=== PATIENT | male | born 1955 | race Caucasian/White ===

== ENCOUNTER 2023-10-16 09:01 | Observation (INO) ==
--- NOTE | 2023-09-21 10:52 | PAT Medication Instructions ---
Medication Instructions Date of Service September 21, 2023 Home Medications amlodipine 5 mg tablet 5 mg PO PM carvedilol 12.5 mg tablet 12.5 mg PO BID losartan 50 mg tablet 50 mg PO QAM simvastatin 20 mg tablet 20 mg PO PM cholecalciferol (vitamin D3) 50 mcg (2,000 unit) tablet (Vitamin D3) 50 mcg PO DAILY cyanocobalamin (vitamin B-12) 1,000 mcg tablet 1,000 mcg PO 3XWK naproxen sodium 220 mg tablet (Aleve) 220 mg PO BID PRN Pain sour hauser extract 1,000 mg capsule (Tart Hauser Extract) 3,000 mg PO DAILY MEDICATION INSTRUCTIONS: ASK your surgeon for instructions naproxen sodium 220 mg tablet (Aleve) 220 mg PO BID PRN Pain STOP taking 2 weeks before surgery sour hauser extract 1,000 mg capsule (Tart Hauser Extract) 3,000 mg PO DAILY DO NOT take the morning of surgery losartan 50 mg tablet 50 mg PO QAM cholecalciferol (vitamin D3) 50 mcg (2,000 unit) tablet (Vitamin D3) 50 mcg PO DAILY cyanocobalamin (vitamin B-12) 1,000 mcg tablet 1,000 mcg PO 3XWK Take morning of surgery With a small sip of water, OTHERWISE NOTHING TO EAT OR DRINK AFTER MIDNIGHT: carvedilol 12.5 mg tablet 12.5 mg PO BID Take evening before surgery simvastatin 20 mg tablet 20 mg PO PM amlodipine 5 mg tablet 5 mg PO PM carvedilol 12.5 mg tablet 12.5 mg PO BID Other Notes If you have any questions please call us at [phone] or [phone] or [phone] or [phone]
--- NOTE | 2023-09-25 11:39 | Anesthesiology Consultation ---
Date of Service September 25, 2023 Assessment & Plan (1) Encounter for pre-operative examination: - Outpatient joint assessment: Patient is currently scheduled for inpatient pathway. If re-evaluated and patient/surgeon requests outpatient pathway, patient is acceptable candidate for outpatient joint program from anesthesia standpoint pending surgeon's office assessment of pt motivation/support/completion of same day joint program preop requirements. Chart Review Chart Review: Acceptable Risk for Surgery and Patient seen in Pre Admission Testing Teaching & Discussion Pre-Anesthesia Teaching/Discussion Notes: Instructed NPO after midnight before surgery, except medications with 15 cc of water. Medication instructions provided according to the PAT guidelines. History Surgery Operation Date: 10/16/23 10:00 Proposed Procedures p Right Total Knee Arthroplasty - John Light MD Height/Weight Height: 5 ft 9 in Weight: 113.8 kg Allergies Allergy/AdvReac Type Severity Reaction Status Date / Time No Known Allergies Allergy Verified 09/17/23 14:48 Medications Home Medications Medication Instructions Recorded Confirmed Last Taken CPAP Machine 02/12/23 02/12/23 Unknown amlodipine 5 mg tablet 5 mg PO PM 02/12/23 09/17/23 Unknown carvedilol 12.5 mg tablet 12.5 mg PO BID 02/12/23 09/17/23 Unknown losartan 50 mg tablet 50 mg PO QAM 02/12/23 09/17/23 Unknown simvastatin 20 mg tablet 20 mg PO PM 02/12/23 09/17/23 Unknown cholecalciferol (vitamin D3) 50 50 mcg PO DAILY 09/17/23 09/17/23 Unknown mcg (2,000 unit) tablet (Vitamin D3) cyanocobalamin (vitamin B-12) 1,000 mcg PO 3XWK 09/17/23 09/17/23 Unknown 1,000 mcg tablet naproxen sodium 220 mg tablet 220 mg PO BID PRN Pain 09/17/23 09/17/23 Unknown (Aleve) sour hauser extract 1,000 mg 3,000 mg PO DAILY 09/17/23 09/17/23 Unknown capsule (Tart Hauser Extract) Past Medical History Medical History (Updated 09/25/23 @ 11:52 by Shamika Otero PA-C) Hemochromatosis pt reports needing phlebotomy in the past-follows with [facility] hematology-he states labs 1 month ago were stable per pt High cholesterol History of COVID-19 2021 -denies hospitalization-symptoms resolved Hypertension controlled, stable per pt Kidney stones passed on own Prostate cancer remote hx per pt > 42 radiation treatments Sleep apnea CPAP-compliant Patient denies h/o stroke, seizures, heart attack, heart failure, DM, blood clots/DVTs or blood transfusions. Exercise / Class Metabolic Activity II 4-5 Yardwork/Stairs/Walk up hill (denies chest discomfort or shortness of breath with 1 FOS) Past Surgical History Surgical History H/O hemorrhoidectomy History of appendectomy History of carpal tunnel release bilat History of colonoscopy History of tooth extraction Hx of prostate biopsy Past Anesthesia History No Hx of Anesthesia Complications and No Family Hx of Anesthesia Complications History of PONV No Hx of PONV and No Hx of Motion Sickness Social History Smoking Status: Never smoker Do You Dip or Chew Tobacco: Yes (advised npo status) Hx Alcohol Use: Yes Alcohol type: beer alcohol intake frequency: 3 or more drinks per day Alcohol Intake Frequency Comment: 3-4 beers per day Hx Substance Use: No substance use type: does not use Review of Systems Patient denies chest pain, shortness of breath, dyspnea on exertion, reflux, fever, chills, cough, wheezing, or palpitations. Physical Exam Vital Signs Vitals BP 144/76 P 66 TEMP 97.7 SP02 96% on RA RESP 18 Physical Short, thick neck Patient resting comfortably in chair in no acute distress, alert and oriented, responding appropriately throughout visit Full cervical extension range of motion without pain TMD < 3 finger breadths Mallampati Score 3 Dentition: intact, denies chipped or loose teeth, caps/crowns, implants or bridges Lungs: normal respiratory effort. Good air movement, clear throughout to auscultation, no adventitious breath sounds Cardiac: regular rate and rhythm, no murmurs noted Carotid arteries: negative bruit bilat Lab Results Anesthesia Preop Results Results Anesthesia Widget: WBC 6.66 K/ul (4.8-10.8) 09/25/23 Hgb 16.0 g/dl (14.0-18.0) 09/25/23 Hct 44.7 % (42.0-52.0) 09/25/23 Plt 227 K/uL (130-400) 09/25/23 Na 136 mmol/L (136-145) 09/25/23 K 4.1 mmol/L (3.5-5.1) 09/25/23 Cl 103 mmol/L (98-107) 09/25/23 CO2 26 mmol/L (21-32) 09/25/23 BUN 21 mg/dl (6-23) 09/25/23 Creat 0.72 mg/dl (0.6-1.4) 09/25/23 Glucose Level 101 mg/dl (70-99(Fasting)) H 09/25/23 PT 10.8 Seconds (9.0-12.0) 09/25/23 PTT 28 Seconds (21-31) 09/25/23 INR 1.0 (0.9-1.1) 09/25/23 Blood Type O Positive 09/25/23 Antibody Screen NEGATIVE 09/25/23 Testing Electrocardiogram Date: 09/25/23 NSR, rate 66 bpm Chest X-Ray Date: 09/25/23 No acute cardiopulmonary findings. Stress Test Date: 06/28/18 Exercise MPHR 85% METS not reported Negative ischemia or infarction
[~2023-10-16 09:01] MED LIST: ACETAMINOPHEN 500 MG TAB PO SCH; BUPIVACAINE 0.5 % 5 MG/1 ML PF 10ML VIAL ONE; CeleBREX 200 MG CAP PO SCH; FAMOTIDINE 20 MG TAB PO SCH; LR 500ML BOLUS, THEN 15ML/HR IV SCH; LR 60ML/HR IV SCH; METOCLOPRAMIDE HCL 10 MG TABLET PO SCH; ROPIV 0.5% 246mg, Ketorolac 30mg, EPINEPHrine 0.5mg in NSS INFIL SCH; ROPIVACAINE 0.5% 5 MG/ML 30 ML VIAL ONE; Scopolamine 1 MG TDSY TD SCH; TRANEXAMIC ACID 1,000 MG **IV Intra-op IV SCH; ceFAZolin 2000MG 2,000 MG/15 ML SYR IV SCH; dexAMETHasone**PF** 10 MG/ML VIAL IV SCH
[2023-10-16] MEDS ORDERED: PROPOFOL IV EMULSION 10 MG/ML 20 ML VIAL IV ONE (09:31)
[2023-10-16] MEDS ORDERED: LIDOCAINE 2% 20 MG/ML 5 ML SYR IV ONE (09:32)
[2023-10-16] MEDS ORDERED: LIDOCAINE 2% 2 ML VIAL/AMP(20MG/ML) INFIL ONE (09:32)
[2023-10-16] MEDS ORDERED: MIDAZOLAM HCL 1 MG/ML 2ML VIAL ONE ×2 (09:32→10:49)
[2023-10-16] MEDS ORDERED: fentaNYL citrate PF 100 MCG/2 ML VIAL ONE (09:32)
[2023-10-16] MEDS ORDERED: ONDANSETRON INJ 2 MG/ML 2 ML VIAL ONE (09:34)
--- NOTE | 2023-10-16 10:44 | History & Physical Bridge Note ---
Date of Service October 16, 2023 History & Physical Bridge Note I have examined the patient, reviewed the History & Physical and in the interval since the performance of the History & Physical I have noted the following changes of clinical significance: no changes noted
[2023-10-16] MEDS ORDERED: ORTHO JOINT ANESTHETIC ONE (10:51)
[2023-10-16] MEDS ORDERED: ONDANSETRON INJ 2 MG/ML 2 ML VIAL IV PRN ×2 (10:52→14:18)
[2023-10-16] MEDS ORDERED: ePHEDrine sulfate 50 MG/ML AMP IV PRN (10:52)
[2023-10-16] MEDS ORDERED: HYDROmorphone INJ 2 MG/ML SYR/VIAL IV PRN (10:52)
[2023-10-16] MEDS ORDERED: fentaNYL citrate PF 100 MCG/2 ML VIAL IV PRN (10:52)
[2023-10-16] MEDS ORDERED: PROMETHAZINE HCL 12.5 MG in SODIUM CHLORIDE 0.9% 50 ML IV PRN (10:52)
[2023-10-16] MEDS ORDERED: ATROPINE SULFATE 0.1 MG/ML 10ML SYR IV PRN (10:52)
[2023-10-16] MEDS ORDERED: ePHEDrine sulfate 50 MG/5 ML SYR ONE (11:36)
[2023-10-16] MEDS ORDERED: PHENYLEPHRINE 100MCG/ML 10ML SYR IV ONE (11:36)
--- NOTE | 2023-10-16 12:53 | Operative Report ---
PG Post Operative Report Pre & Post Diagnosis Operation Date: 10/16/23 12:30 Pre-Op Diagnosis: Right Knee Advanced Degenerative Joint Disease Post-Op Diagnosis: Right Knee Advanced Degenerative Joint Disease I identified the patient and participated in the time-out.: Yes Procedure Operation Date: 10/16/23 12:30 Actual Procedures p Right Total Knee Arthroplasty(Right) - John Light MD Surgeon John Light MD Government Sales Manager Oscar Ponce PA-C Estimated Blood Loss 50 Findings Consistent with Post-Op Diagnosis Specimens Right knee sent for pathology. Anesthesia Type Spinal MAC Complications none Disposition Accompanied Patient To Recovery: No Indications Patient is a 67-year-old gentleman said a several year history of increasing right knee pain discomfort describes gotten worse over time. Is been to extensive conservative treatments became less successful over time. X-rays show advanced medial compartment arthritis. He elected proceed with surgical management. Description of Procedure Operative implants consist of: 1. Biomet Vanguard size 70 right posterior stabilized femoral component. 2. Biomet size 71 tibial tray. 3. 10 mm post stabilized polyethylene insert. 4. 31 x 8 all poly patella. The patient was taken the operating, identified, placed on the operating table in the supine position. All contact areas were appropriately padded. IV antibiotics tried by anesthesia team. A spinal anesthetic and adductor canal block had provided in the holding area. A right thigh tent was then placed. The right lower extremity was then prepped and draped in usual sterile fashion. The right leg was elevated exsanguinated with use of an Esmarch and tourniquet placed at 300 mmHg. An anterior approach to the right knee was then performed to longitudinal incision centered over the patella. Sharp dissection was carried through subcutaneous tissue down to the extensor mechanism. A medial parapatellar arthrotomy incision was made. Some subperiosteal dissection was carried out medially. The fat pad was resected from Neath patella tendon. Lateral patellofemoral ligament was released. Patella subluxated laterally knee was flexed. Osteophyte taken off distal femur. The ACL and PCL were then released from the distal femur and the tibia subluxated anteriorly. The external tibial alignment jig was then placed on the anterior face of the tibia and adjusted 14 mm medially. Proximal tibial cut was made remove about 2 to 3 mm of bone from the medial distal side. He did not have a lot of medial wear. The tibia was then sized to a size 71. Attention drawn the femur. The distal femur examined the sharp drop with intramedullary canal was suction. A right 6 degree valgus cutting guide was placed. The distal femoral cutting block was pinned in place. Distal femoral cut was made to take an additional 3 mm of bone off distal femur. The femur was then sized to a size 70. The AP cutting block was pinned parallel to the op, or axis which was 3 degrees of external rotation. The anterior cut, anterior chamfer, posterior cut, posterior chamfer cuts were made. The box cutting guide was placed in the just slight lateral. The box cut was made. The remnants of the medial and lateral menisci were excised. The osteophytes taken off the posterior aspect the femur. A trial femoral component was placed. Tibial tray was pinned Cici external Tatian and the drill and stem punch were used to create defect in the proximal tibia for the tibial tray. The knee was then trialed and the 10 mm insert fit most appropriately. Attention drawn the patella. The patella was cleaned of all soft tissues. Patella thickness measured 21 mm in thickness was cut down to 14. Was sized to a size 31 patella. The locals were drilled for 31 patella. The lateral osteophyte was removed. Patella button was placed. Knee was taken through range of motion patella tracked nicely with no thumbs test. Attention drawn to place the permanent components. All trial components were removed. A bone plug was placed in the distal femur limit blood loss. Double batch Palacos G cement was mixed. Biomet StartBullguard size 70 right posterior stabilized femoral component, size 71 tibial tray, a 10 mm post stabilized polyethylene insert, and a 31 x 8 all poly patella then cemented in place. Knee was brought in full extension till cement hardened. Final cement check was then performed. The pericapsular tissues were injected with total of 100 cc of combination of 50 cc of ropivacaine with epinephrine, 30 mg of Toradol, 50 cc of normal saline. The patient did receive 1 g tranexamic acid. The tourniquet was then let down for final tourniquet time 56 minutes. Hemostasis assured use electrocautery. Extensor Meclomen then closed with combination 1 PDS suture #1 Vicryl suture in a [id number] fashion. Extensor Meclomen checked found to be intact through subcutaneous tissues then closed with 2 Dexon suture in a buried interrupted fashion skin was closed skin jose c. Leg was then cleaned and dried and sterile dressing with Xeroform, 4 fours, sterile cast padding, Navjot bandage were applied. Patient then transferred to the recovery room in stable condition. Patient tolerated the procedure well and there were no complications. Oscar Ponce, my physician broker assistant, was present for the entire procedure. His assistance was essential and required for appropriate patient positioning, prepping and draping, surgical exposure, performing the technical details of the operation, placement the implants, closure of the wound, and placement of the sterile bandage. I attest to the content of the Intraoperative Record and any orders documented therein. Any exceptions are noted below.
--- NOTE | 2023-10-16 13:23 | XRay Report ---
XR knee RT 1 or 2V routine CLINICAL HISTORY: Surgical Post Op TECHNIQUE: 2 views of the right knee were obtained. Comparison: Comparison is made to knee radiographs 09/25/2013 FINDINGS: Patient is status post total knee arthroplasty with expected postsurgical changes including soft tiss ue swelling and subcutaneous emphysema. No periarticular lucency or hardware fracture is seen. IMPRESSION: Expected postoperative appearance status post placement of total knee arthroplasty. ACT 112: Negative or not required by law. Electronically signed by: Willie Salazar M.D. 10/16/2023 1:22 PM
[2023-10-16] MEDS ORDERED: MAGNESIUM HYDROXIDE SUSP 30 ML UDC PO PRN (14:18)
[2023-10-16] MEDS ORDERED: NALOXONE HCL 0.4 MG/1 ML VIAL/CARP IV PRN (14:18)
[2023-10-16] MEDS ORDERED: ALUMINUM/MAGNESIUM SUSP 30 ML UDC PO PRN (14:18)
[2023-10-16] MEDS ORDERED: HYDROmorphone INJ 0.5 MG/0.5 ML SYR IV PRN (14:18)
[2023-10-16] MEDS ORDERED: METOCLOPRAMIDE HCL INJ 5 MG/ML 2 ML VIAL IV PRN (14:18)
[2023-10-16] MEDS ORDERED: diphenhydrAMINE Capsule 25 MG CAP PO PRN (14:18)
[2023-10-16] MEDS ORDERED: bisacodyL 10 MG SUPP PR PRN (14:18)
[2023-10-16] MEDS ORDERED: CYANOCOBALAMIN (B-12) 500 MCG TABLET PO SCH (14:30)
[2023-10-16] MEDS ORDERED: SODIUM CHLORIDE 0.9% 1,000 ML IV SCH (14:30)
[2023-10-16] MEDS ORDERED: INFLUENZA VACCINE HIGH-DOSE (HD-IIV4) PF 65+ 0.7mL SYR IM ONE (14:37)
--- NOTE | 2023-10-16 14:52 | Anesthesiology Progress Note ---
Date of Service October 16, 2023 Anesthesia Post Procedure Vital Signs Vital Signs: Temp Pulse Pulse Resp BP Pulse Ox O2 Del Method 10/16/23 14:30 36.4 C L 61 18 99/63 L 93 Room Air 10/16/23 13:50 36.7 C 60 20 105/55 L 94 Room Air 10/16/23 13:40 36.7 C 60 19 100/63 95 Room Air 10/16/23 13:30 60 21 104/63 95 Room Air 10/16/23 13:20 68 18 89/61 L 99 Oxymask 10/16/23 13:10 56 L 16 96/58 L 99 Oxymask 10/16/23 13:00 37.2 C 53 L 17 97/62 L 100 Oxymask 10/16/23 12:51 37.2 C 64 24 95/63 L 98 Oxymask 10/16/23 09:28 Room Air 10/16/23 09:28 36.5 C 58 L 20 116/88 98 Room Air O2 Flow Rate 10/16/23 14:30 10/16/23 13:50 10/16/23 13:40 10/16/23 13:30 10/16/23 13:20 1 10/16/23 13:10 1 10/16/23 13:00 3 10/16/23 12:51 5 10/16/23 09:28 10/16/23 09:28 Pain Intensity Right Knee: Pain Intensity: 0 Transfer of Care Handoff Completed per policy Notes Mental Status: alert / awake / arousable and participated in evaluation Nausea / Vomiting: adequately controlled Pain: adequately controlled Airway Patency, RR, SpO2: stable & adequate BP & HR: stable & adequate Hydration State: stable & adequate Neuraxial Anesthesia: was administered and sensory block is resolving Anesthetic Complications: no major complications apparent and Pt Satisfied with anesthetic care
[2023-10-16] MEDS: ACETAMINOPHEN 500 MG TAB PO SCH ×2 (15:03→20:50)
[2023-10-16] MEDS: KETOROLAC 30 MG/ML VIAL IV SCH ×2 (15:04→20:52)
[2023-10-16] MEDS: Scopolamine CHECK PATCH PLACEMENT SCH ×2 (15:05→23:10)
[2023-10-16] MEDS: ASCORBIC ACID 500 MG TAB PO SCH (16:20)
[2023-10-16] MEDS: oxyCODONE HCL IR 5 MG TAB (IMMEDIATE RELEASE) PO PRN (16:22)
[2023-10-16] MEDS ORDERED: TRANEXAMIC ACID / 0.7% NACL 1,000 MG/100 ML BAG IV SCH (19:00)
[2023-10-16] MEDS: ceFAZolin 2000MG 2,000 MG/15 ML SYR IV SCH (19:21)
[2023-10-16] MEDS: SENNA 8.6 MG TAB PO SCH (20:49)
[2023-10-16] MEDS: carvediloL 12.5 MG TAB PO SCH (20:50)
[2023-10-16] MEDS: DOCUSATE SODIUM 100 MG CAP PO SCH (20:50)
[2023-10-16] MEDS: ASPIRIN 81 MG ECTAB PO SCH (20:51)
[2023-10-16] MEDS ORDERED: amLODIPine BESYLATE 5 MG TAB PO SCH (21:00)
[2023-10-16] MEDS ORDERED: SIMVASTATIN 20 MG TAB PO SCH (21:00)
[2023-10-16] MEDS ORDERED: SENNA 8.6 MG TAB PO SCH (21:00)
[2023-10-17] MEDS: ceFAZolin 2000MG 2,000 MG/15 ML SYR IV SCH (03:20)
[2023-10-17] MEDS: KETOROLAC 30 MG/ML VIAL IV SCH ×2 (03:20→07:49)
[2023-10-17 06:29] LABS: Hematocrit (blood only) 43.1 % (42.0-52.0); Hemoglobin 14.3 g/dl (14.0-18.0); Mean Corpuscular Hemoglobin 30.4 pg (25.0-34.0); Mean Corpuscular Hgb Conc 33.2 g/dL (32.0-36.0); Mean Corpuscular Volume 91.5 fL (80.0-100.0); Mean Platelet Volume 10.2 fL (9.4-12.4); Platelet Count 216 K/uL (130-400); RDW Coefficient of Variation 12.7 % (11.5-14.5); RDW Standard Deviation 42.5 fL (36.4-46.3); Red Blood Count 4.71 M/uL (4.70-6.10); White Blood Count 14.28 K/ul (4.8-10.8)
[2023-10-17 06:44] LABS: BUN Creatinine Ratio 19.7 (10-20); Creatinine Clr Calc Pharmacy 118.5 ml/min; Est GFR (Non-African American) 95.7 ml/min
[2023-10-17] MEDS: SENNA 8.6 MG TAB PO SCH (07:45)
[2023-10-17] MEDS: carvediloL 12.5 MG TAB PO SCH (07:46)
[2023-10-17] MEDS: DOCUSATE SODIUM 100 MG CAP PO SCH (07:46)
[2023-10-17] MEDS: ACETAMINOPHEN 500 MG TAB PO SCH (07:47)
[2023-10-17] MEDS: ASPIRIN 81 MG ECTAB PO SCH (07:47)
[2023-10-17] MEDS: ASCORBIC ACID 500 MG TAB PO SCH (07:47)
[2023-10-17] MEDS: Scopolamine CHECK PATCH PLACEMENT SCH (07:48)
[2023-10-17] MEDS: oxyCODONE HCL IR 5 MG TAB (IMMEDIATE RELEASE) PO PRN (07:52)
[2023-10-17] MEDS ORDERED: dexAMETHasone 10 MG in SYRINGE 0 ML IV SCH (08:00)
--- NOTE | 2023-10-17 08:09 | Surgery Progress Note ---
Date of Service October 17, 2023 Assessment & Plan (1) Status post right knee replacement: Plan: 67-year-old gentleman postop day 1 from right knee replacement. He is doing quite well. Pain is controlled. He is neurologically intact. Plan: 1. DVT prophylaxis including thigh-high teds, SCDs, aspirin twice a day. 2. PT/OT. Weight-bear as tolerated. Right total knee protocol. 3. Pain control done well with current pain regimen. 4. Disposition plan discharge home with some home health if he does okay in therapy today. Admission and Anticipated Discharge Date Admission Date: October 16, 2023 Subjective 67-year-old gentleman postop day 1 from a right knee replacement. He is doing pretty well. Pain is controlled. No chest pain or shortness of breath. Not feeling dizzy or lightheaded. Physical Exam Physical Exam: Diane carlton is a pleasant middle-age male. Sitting by the bedside chair. Examination of the right knee and leg reveals dressing clean dry and intact. No drainage. He can dorsiflex, plantarflex his foot appropriately. He can do a straight leg raise. Respiratory: normal respiratory effort, lungs clear to auscultation Cardiovascular: RRR, no murmur, no edema Gastrointestinal (Abdomen): normal bowel sounds, soft, nontender, no hepatosplenomegaly Results & Data Vital Signs (Past 12 Hours) Vital Signs Temp Pulse Resp BP Pulse Ox O2 Del Method 10/17/23 07:43 36.7 C 60 17 129/77 96 Room Air 10/17/23 03:19 36.4 C L 57 L 17 119/75 99 CPAP 10/16/23 23:30 36.8 C 90 18 114/71 97 Room Air Laboratory Results Hemoglobin is 14.3. Hematocrit 43.1. Electrolytes are stable. PG Care Time/CCT Total # of Minutes Spent Total Time Spent with Patient: Total time spent is greater than 50% in coordination of care (as documented) at patient's floor/unit and/or counseling patient: Coding Level of Care Code None Diagnoses Status post right knee replacement Z96.651
[2023-10-17] MEDS ORDERED: MULTIVITAMIN TAB PO SCH (09:00)
[2023-10-17] MEDS ORDERED: CHOLECALCIFEROL 25 MCG (1000 UNITS) TAB PO SCH (09:00)
[2023-10-17] MEDS ORDERED: NON-FORMULARY MEDICATION (Sour Cherry Extract [Tart Cherry Extract] 1,000 mg Capsule) PO SCH (09:00)
[2023-10-17] MEDS ORDERED: TAMSULOSIN HCL 0.4 MG CAP PO SCH (09:00)
--- NOTE | 2023-10-21 14:38 | Discharge Summary ---
Date of Service October 21, 2023 Discharge Data Procedures Performed Operation Date: 10/16/23 12:30 Actual Procedures p Right Total Knee Arthroplasty(Right) - John Light MD Hospital Course (1) Status post right knee replacement: This is a 67 year old patient admitted on 10/16/23 and underwent total knee arthroplasty. He tolerated the procedure well and there were no complications. Transferred to the PACU post op and later to the orthopedic floor for further care. He was given ancef for antibiotic prophylaxis. He was also given MARK stockings, SCDs, and aspirin for DVT prophylaxis. Hemoglobin, hematocrit, and vital signs were monitored during his hospital stay and remained stable. Did not require any blood transfusions. There were no complications during his hospital stay. By post op day #1 the patient was tolerating a regular diet, pain was reasonably controlled with oral pain medicine, and he was participating in physical therapy. On post op day #1 the patient was discharged home and set up with home health care. He was given printed discharge instructions including prescriptions for extra strength tylenol, aspirin, cefadroxil, ketorolac, zofran, senokot, oxycodone, and flomax. Continue physical therapy, weight bearing as tolerated. Continue MARK stockings. Follow up approximately 2 weeks post op or sooner if there are problems or concerns. Coding Level of Care Code None Diagnoses Status post right knee replacement Z96.651
== END 2023-10-17 10:40 | disposition home health service (06) ==
LOC: 3E 09:01 → ASU 09:01
DX: Z85.46 Personal history of malignant neoplasm of prostate; M17.11 Unilateral primary osteoarthritis, right knee; Z79.82 Long term (current) use of aspirin; G47.33 Obstructive sleep apnea (adult) (pediatric); Z79.899 Other long term (current) drug therapy; I10 Essential (primary) hypertension